=== PATIENT | male | born 1980 | race Caucasian/White ===

== ENCOUNTER 2019-02-04 15:09 | Emergency (ER) | payer OTHER, SELFPAY ==
[2019-02-04 15:11] VITALS: BP 135/92; PULSE 83; RESP 16; TEMP 37; O2SAT 98; BMI 30.4
--- NOTE | 2019-02-04 15:27 | ED.VIS.GEN ---
History of Present Illness Chief Complaint: Back Informant: Patient Onset: Today Narrative: Patient presents to the ED with low back pain after injury several hours ago. He was on the back of his pickup truck when he jumped off and landed unsteadily and felt instant sharp shooting pain in his lumbar region that radiated down his legs. He now states that his pain is localized to his lumbar region. He did try to take 600 mg of ibuprofen several hours ago without relief of his symptoms. This has happened to him in the past. He denies any paresthesias or bowel/bladder incontinence. Past Medical History - Allergies and Home Meds Allergies/Adverse Reactions: Allergies metoclopramide HCl [From Reglan] Allergy (Verified 02/04/19 15:13) Other Primary Care Physician: Lourdes Nolen MD [Primary Care Provider] - Smoking Status: Never smoker Review of Systems General: Denies: Chills, Fever, Sweats Eyes: Denies: Visual changes - bilaterally, Diplopia ENT: Denies: Rhinorrhea, Sore throat Cardiovascular: Denies: Chest pain, Palpitations Respiratory: Denies: Dyspnea, Cough, Dyspnea on exertion Gastrointestinal: Denies: Abdominal pain, Nausea, Vomiting, Diarrhea, Melena, Hematochezia Genitourinary: Denies: Dysuria, Hematuria, Frequency Musculoskeletal: Reports: Back pain. Denies: Extremity Pain Skin: Denies: Rash, Wounds Neurological: Denies: Headache, Weakness, Numbness Physical Exam Vital Signs/Narrative: Vital Signs Temp Pulse Resp BP Pulse Ox 02/04/19 15:11 98.6 F 83 16 135/92 H 98 General: Well nourished, Well developed, No Acute Distress Head: Normocephalic, Atraumatic Eyes: Perrl, EOMI ENT: Moist mucous membranes, No rhinorrhea Neck: Supple, Nontender Cardiovascular: Regular rate, Regular rhythm, No murmurs Respiratory: No distress, CTA bilaterally, Chest nontender Abdomen: Soft, Nontender, Nondistended, Normal bowel sounds Back: - - Tenderness to palpation over lumbar region midline and bilateral paraspinal muscles. No palpable step-offs. Negative straight leg raise bilaterally. Extremities: Nontender, No edema Skin: Normal color, No rash Neurological: Alert, Oriented x3, Cranial nerves II-XII grossly intact, Normal Strength, Normal Sensation Psychological: Normal affect, Normal Mood Diagnostic/Tx/Re-eval - Medical Decision Making Patient presents to the ED with lumbar pain after injury today. He was given a total of 8 mg of morphine, and 30 mg of Toradol IV in addition to 5 mg of Valium p.o. He does report improvement of symptoms and was able to ambulate in the emergency department. At this time his injury is most consistent with a lumbar strain. He will be discharged home with Naprosyn and Valium as well as [place] for breakthrough pain. He was instructed to follow-up with his PCP. Educated on signs/symptoms to return to the ED. He is provided discharge instructions. He is agreeable to plan Impression: Lumbar strain Disposition: Home stable ED Disposition - Plan for ED Patient: Disposition: Home or Assisted Living Diagnosis: Lumbar strain Instructions: Back Sprain/Strain Prescriptions: Naproxen [Naprosyn] 500 mg PO BID PRN #20 tab Prescription Printed Hydrocodone Bitart/Apap 5-325 [[place] 5MG-325MG] 1 tab PO Q6H PRN PRN 3 Days #10 tab PRN Reason: Pain Prescription Printed Diazepam [Valium] 5 mg PO Q8H PRN PRN 3 Days #9 tab PRN Reason: Muscle Spasm Prescription Printed Referrals: Lourdes Nolen MD [Primary Care Provider] -
[2019-02-04] MEDS: Morphine 4 MG/ML Syringe IV ×2 (15:42→16:25)
[2019-02-04] MEDS: diazePAM 5 MG Tablet PO (15:42)
[2019-02-04] MEDS: Ketorolac 30 MG/ML Syringe IV (17:11)
[2019-02-04 18:24] VITALS: BP 134/89; PULSE 79; RESP 16; O2SAT 99
== END 2019-02-04 18:34 | disposition home or self-care (01) ==
PROVIDERS: Emergency Provider Physician Assistant; Family Provider Internal Medicine; PCP Internal Medicine
DX: S39.012A Strain of muscle, fascia and tendon of lower back, initial encounter (principal); M62.830 Muscle spasm of back; W17.89XA Other fall from one level to another, initial encounter; Y93.9 Activity, unspecified; Y92.9 Unspecified place or not applicable; Y99.9 Unspecified external cause status; Z88.8 Allergy status to other drugs, medicaments and biological substances
CPT/HCPCS: 96374; 96375; 96376; 99283; A4216

== ENCOUNTER 2022-09-13 21:46 | Emergency (ER) | payer OTHER, SELFPAY ==
[2022-09-13 21:46] VITALS: BP 145/93; PULSE 93; RESP 18; TEMP 36.3; BMI 29.9
--- NOTE | 2022-09-13 22:28 | RAD_ITS ---
INDICATION: pain EXAMINATION/TECHNIQUE: X-RAY - XR Spine Lumbar Min 4 Views COMPARISON: None. FINDINGS: VERTEBRAE: Preserved vertebral body height. No fracture. No spondylolisthesis. Preservation of the normal lumbar lordosis. No significant facet arthropathy. DISCS: Disc spaces are maintained. INCLUDED ABDOMEN: Included bowel gas pattern is non-obstructive. RAD/L/S Spine Min 4 Views IMPRESSION: No evidence of lumbar spinal fracture or spondylolisthesis. Electronically Signed: Gunnar Noonan MD at 23:43 EDT ,
[2022-09-13] MEDS: Orphenadrine 60 MG/2 ML Ampul IM (22:51)
[2022-09-13] MEDS: dexAMETHasone 20 MG/5 ML Vial IV (23:03)
--- NOTE | 2022-09-14 00:02 | EX.ED.DYSGE1 ---
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 He states he was squatting and he accidentally arched his back as he was trying to stand up with the weight. He states when he did this he developed bilateral low back pain. He states he has difficulty standing and walking secondary to the pain. He denies any loss of bowel or bladder control or IV drug use. However with concern he would be ineffective at providing care in a fire or by EMS crew he comes in for evaluation. [facility] Medical History (Updated 09/14/22 @ 00:[address] 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 Fatigue Hernia History of hemorrhoids Knee pain Shoulder pain Home Medications prednisone 10 mg tablet 10 mg PO DAILY #30 tabs 11/19/20 [Rx Last Taken Unknown] ibuprofen 600 mg tablet 600 mg PO 4X/DAY PRN PRN pain #40 tabs 09/14/22 [Rx Last Taken Unknown] methocarbamol 500 mg tablet 1,000 mg PO 4X/DAY PRN PRN Muscle pain/spasm 7 days #56 tabs 09/14/22 [Rx Last Taken Unknown] Allergy/AdvReac Type Severity Reaction Status Date / Time metoclopramide HCl Allergy Other Verified 07/27/20 13:08 [From [facility]] Surgical History History of knee surgery Hx of [facility] Social History (Updated 08/11/20 @ 09:28 by Clay COOK, PA) Smoking Status: Never smoker alcohol intake: current ROS ROS ED Constitutional Constitutional ED: Denies chills or fever(s) ENT ENT ED: Denies sore throat Cardiovascular Cardiovascular: Denies chest pain Respiratory/Chest Respiratory/Chest: Denies cough or dyspnea Gastrointestinal Gastrointestinal: Denies abdominal pain, diarrhea, nausea or vomiting Genitourinary Genitourinary ED: Denies dysuria or hematuria Musculoskeletal Musculoskeletal: Reports back pain Integumentary Denies rash Neurologic Neurologic: Denies headache(s), paresthesias or weakness Hematologic/Lymphatic Hematologic/Lymphatic: Denies easy bleeding or easy bruising EXAM Physical Exam Const Vital Signs: 09/13/22 21:46 Temperature 97.3 F L Temperature Source Temporal Pulse Rate 93 Respiratory Rate 18 Blood Pressure 145/93 H Blood Pressure Mean 110 Positive well nourished and well developed General Appearance ED: well developed Eyes PERRL and EOMs intact bilaterally Neck supple Resp normal respiratory effort and clear to auscultation bilaterally Cardio regular rate and regular rhythm Back/Spine Back/Spine Narrative: No bony deformity or step-off of the thoracic or lumbar spine no midline pain with palpation. There is bilateral paralumbar tenderness and spasm noted that worsens with extension and rotation. No pain with palpation over top the sacroiliac joint region. No saddle anesthesia. Negative straight leg raise. No clonus or Babinski. Patellar reflexes are plus 2 out of 4 bilaterally. Extremity normal to inspection Neuro oriented x3 and CN's II-XII intact bilaterally Sensorium / Orientation: alert Psych mental status grossly normal Skin no rashes or lesions noted Skin Narrative: No overlying soft tissue changes to suggest trauma or infection MDM MDM MDM Narrative Medical decision making narrative: Patient presented to the ER with bilateral low back pain worse with motion after a squatting event. He denied loss of bowel or bladder control or IV drug use and therefore my concern for cauda equina or epidural abscess is low. Patient does not have true midline pain but with the history of compression loading from the squatting event there is concern for compression fracture or spinal thesis so an x-ray was ordered. X-ray revealed no acute bony findings. This indicates patient's symptoms are related to muscle and not bone and he has no radicular pain to suggest nervous compression. Therefore at this time patient to be given anti-inflammatories and muscle relaxers and discharged home History & Record Review Discussion w/independent historian: Patient Radiography Diagnostic Testing: Clinical Impression(s) from Imaging Studies Lumbar Spine X-Ray 09/13/22 22:28 IMPRESSION: No evidence of lumbar spinal fracture or spondylolisthesis. Electronically Signed: Gunnar Noonan MD at 23:43 EDT , X-ray of the lumbar spine as interpreted by the emergency medicine physician reveals no acute compression fracture or spondylolisthesis. Discharge Plan Triage Chief Complaint: Back ED Provider: Que Lundy Dx/Rx/DC Orders Clinical Impression: Acute lumbosacral myofascial strain Instructions: Understanding Lumbosacral Strain Prescriptions: New methocarbamol 500 mg tablet 1,000 mg PO 4X/DAY PRN PRN (Reason: Muscle pain/spasm) 7 Days Qty: 56 0RF Rx Instructions: 1 to 2 pills by mouth 4 times daily as needed muscle pain/spasm ibuprofen 600 mg tablet 600 mg PO 4X/DAY PRN PRN (Reason: pain) Qty: 40 0RF No Action prednisone 10 mg tablet 10 mg PO DAILY Qty: 30 0RF Rx Instructions: 4 tablets daily for 3 days, then 3 tablets daily for 3 days, then 2 tablets daily for 3 days, then 1 tablet daily for 3 days Primary Care Provider: Care Physician,No Primary Referrals: Care Physician,No Primary [Primary Care Provider] - Activity Restrictions/Additional Instructions: Please continue to stretch and heat your back to help reduce pain and speed healing and follow-up with Workmen's Comp. should you have worsening symptoms and return to the ER should you have any further concerns Happy birthday Disposition Disposition: Home, Self Care Discharge Date/Time: 09/14/22 00:22
== END 2022-09-14 00:22 | disposition home or self-care (01) ==
PROVIDERS: Emergency Provider Emergency Medicine; Visit Provider Emergency Medicine
DX: S39.012A Strain of muscle, fascia and tendon of lower back, initial encounter (principal); X50.0XXA Overexertion from strenuous movement or load, initial encounter; Y99.0 Civilian activity done for income or pay
CPT/HCPCS: 72110; 96372; 96374; 99282

== ENCOUNTER 2023-09-14 23:20 | Emergency (ER) | payer OTHER, SELFPAY ==
[2023-09-14 23:21] VITALS: BP 133/92; PULSE 88; RESP 14; TEMP 36.2; O2SAT 97; BMI 31.7
--- NOTE | 2023-09-14 23:39 | EDS_ITS ---
HPI History of Present Illness Chief Complaint: Lower Extremity Injury Narrative Narrative: 42-year-old male who denies significant past medical history presents with injury to his left foot that he sustained approximately 5 hours ago. There was a pop fly in a baseball game, that landed on his left foot. He has has bruising of his left toe and swelling around the MTP joint. He had mild bruising of his second toe as well. He has been able to ambulate. He took Aleve prior to arriv al. Pain is worse with weightbearing and walking. He denies other injury. No blood thinners. 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 Fatigue Hernia History of hemorrhoids Knee pain Shoulder pain Home Medications albuterol sulfate 90 mcg/actuation aerosol inhaler 2 puff inhalation Q6H PRN shortness of breath or wheezing #6.7 grams 10/11/22 [Rx Last Taken Unknown] cetirizine 10 mg capsule (Zyrtec) 10 mg PO DAILY PRN 10/11/22 [History Last Taken Unknown] fluticasone propionate 50 mcg/actuation nasal spray,suspension (Allergy Relief (fluticasone)) 1 spray intranasal DAILY PRN 10/11/22 [History Last Taken Unknown] guaifenesin 600 mg tablet, extended release 12 hr (Mucinex) 600 mg PO Q12H PRN 10/11/22 [History Last Taken Unknown] Allergy/AdvReac Type Severity Reaction Status Date / Time metoclopramide HCl Allergy Other Verified 09/14/23 23:24 [From [facility]] Surgical History History of knee surgery Hx of LASIK Social History Smoking Status: Never smoker alcohol intake: current ROS ROS ED ROS Narrative Constitutional: No fever, no chills. HEENT: No sore throat. No neck pain. No loss of vision. No rhinorrhea. Cardiovascular: No chest pain. No palpitations. No pedal edema. Respiratory: No cough, no shortness of breath. Abdominal: No abdominal pain. No nausea. No vomiting. Genitourinary: No dysuria. No hematuria. Musculoskeletal: No myalgias. Positive great toe pain and swelling. Positive bruising. Neurologic: No headaches. No dizziness. No lightheadedness. Skin: No rash. No change in color. Psychiatric: No depression. No anxiety. EXAM Physical Exam Narrative Exam Narrative: Afebrile. Vital signs noted. HEENT: Normocephalic. Atraumatic. PERRL, EOMI. Neck soft and supple. No point tenderness or step off. Cardiovascular: Regular rate and rhythm. No murmurs, rubs, or gallops appreciated. Respiratory: No tachypnea. Lungs clear to auscultation bilaterally. Gastrointestinal: Abdomen soft, nontender, with normoactive bowel sounds. No rebound or guarding. Neurological: Awake. Alert. Nonfocal, nonlateralizing. Skin: No rash. Normal color. No pallor. Musculoskeletal: No pedal edema. Full range of motion extremities. Limited range of motion of left great toe secondary to swelling and pain. Positive ecc hymosis diffusely especially at MTP joint and phalanx of great toe. Good capillary refill. Palpable dorsalis pedis pulse. Uninjured ankle and above. Const Vital Signs: 09/14/23 23:21 Temperature 97.2 F L Temperature Source Temporal Pulse Rate 88 Respiratory Rate 14 Blood Pressure 133/92 H Blood Pressure Mean 105 Pulse Ox 97 Oxygen Delivery Method Room Air MDM MDM MDM Narrative Medical decision making narrative: In the differential diagnosis is foot/toe contusion versus fracture. Patient declined any oral analgesics here. He has been icing the area already. X-rays were obtained in 3 views to rule out fracture. On my interpretation of his three-view foot x-ray, I see no evidence of acute fracture. I reviewed the radiology report which confirms my independent interpretation and comments on multiarticular chronic changes. At this point in time, patient declined postoperative shoe and Andi wrap. He will be weightbearing as tolerated. He was referred to podiatry to follow-up in 1 week if no improvement. [id number] medications are sufficient for analgesia. Disposition is discharged home in stable condition. Radiography Diagnostic Testing: Clinical Impression(s) from Imaging Studies Foot X-Ray 09/14/23 23:39 IMPRESSION: Multi-articular chronic changes. No convincing acute abnormality. Electronically Signed: Daisy Alford MD at 0:17 EDT , Discharge Plan Triage Chief Complaint: Lower Extremity Injury ED Provider: Cuco Burden Dx/Rx/DC Orders Clinical Impression: Contusion of foot, left Instructions: ED Foot Contusion Prescriptions: No Action fluticasone propionate [Allergy Relief (fluticasone)] 50 mcg/actuation spray,suspension 1 spray intranasal DAILY PRN Rx Instructions: administer into each nostril guaifenesin [Mucinex] 600 mg tablet extended release 12hr 600 mg PO Q12H PRN Zyrtec 10 mg capsule 10 mg PO DAILY PRN albuterol sulfate 90 mcg/actuation HFA aerosol inhaler 2 puff inhalation Q6H PRN (Reason: shortness of breath or wheezing) Qty: 6.7 0RF Primary Care Provider: Care Physician,No Primary Referrals: Hernán Juárez DPM [Med Staff - Active Staff] - 1 Week if not improving Care Physician,No Primary [Primary Care Provider] - Disposition Disposition: Home, Self Care
--- NOTE | 2023-09-14 23:39 | RAD_ITS ---
EXAM: XR LEFT FOOT COMPLETE, 3 OR MORE VIEWS CLINICAL INDICATION: Trauma TECHNIQUE: Frontal, lateral and oblique views of the left foot. COMPARISON: No relevant prior studies available. FINDINGS: BONES/JOINTS: Hallux valgus or bunion deformity of the first MTP joint. Fusion of the fourth and fifth DIP joints, normal variation. Mild degenerative osteophytes on the lateral side of the first DIP joint. No acute fracture. No sclerotic or destructive changes observed. SOFT TISSUES: Mild soft tissue swelling medial to the first MTP joint. No radiopaque foreign body. RAD/Foot min 3 Views IMPRESSION: Multi-articular chronic changes. No convincing acute abnormality. Electronically Signed: Daisy Alford MD at 0:17 EDT ,
== END 2023-09-15 00:34 | disposition home or self-care (01) ==
PROVIDERS: Emergency Provider Emergency Medicine; Visit Provider Emergency Medicine
DX: S90.32XA Contusion of left foot, initial encounter (principal); S90.122A Contusion of left lesser toe(s) without damage to nail, initial encounter; W21.03XA Struck by baseball, initial encounter; Z79.899 Other long term (current) drug therapy
CPT/HCPCS: 73630; 99282

== ENCOUNTER 2024-08-23 07:52 | Emergency (ER) | payer OTHER, SELFPAY ==
[2024-08-23 07:53] VITALS: BP 141/106; PULSE 75; RESP 18; TEMP 36.1; O2SAT 96; BMI 32.8
--- NOTE | 2024-08-23 08:04 | EDS_ITS ---
HPI History of Present Illness Chief Complaint: Back Informant: patient and spouse/S.O. Narrative Narrative: 43-year-old male presenting to the emergency room with acute back pain. 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 He felt tight yesterday. During the night he went to move and felt a twinge in his back and developed spasm. He has had episodes like this in the past. He notes when he stands up he feels better bent over with his knees bent. He notes the pain to be lateral across the low back radiating anteriorly and into the anterior thighs. He denies any bowel or bladder dysfunction. He denies any muscle weakness. He denies any known direct trauma. August 2022 he had back x-rays that were negative. No fever IVD immunosuppression or red flag history. 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 Contact dermatitis due to poison josé manuel Hernia Knee pain Fatigue Shoulder pain History of hemorrhoids Home Medications ?Medication ?Instructions ?Recorded ?Last Taken ?Type albuterol sulfate 90 mcg/actuation 2 puff inhalation Q 6H PRN 10/11/22 Unknown Rx aerosol inhaler shortness of breath or wheez ing #6.7 grams cetirizine 10 mg capsule (Zyrtec) 10 mg PO DAILY PRN 0 10/11/22 Unknown History fluticasone propionate 50 1 spray intranasal DAILY PRN 10/11/22 Unknown History mcg/actuation nasal spray,suspension (Allergy Relief (fluticasone)) guaifenesin 600 mg tablet, 600 mg PO Q12H PRN 10/11/22 Unknown History extended release 12 hr (Mucinex) diazepam 5 mg tablet 5 mg PO Q8 PRN Muscle Spasm #15 08/23/24 Unknown Rx tabs hydrocodone-acetaminophen 5-325mg 1 tab PO Q4H PRN PRN Pain 3 days 08/23/24 Unknown Rx 5mg-325mg #15 TABLETS ketorolac 10 mg tablet 10 mg PO Q8H PRN pain #15 ta bs 08/23/24 Unknown Rx Allergy/AdvReac Type Severity Reaction Status Date / Time metoclopramide HCl (From Allergy Other Verified 08/23/24 07:53 Reglan) Surgical History History of knee surgery Hx of LASIK Social History Smoking Status: Never smoker alcohol intake: current ROS ROS ED Constitutional Constitutional ED: Denies chills or weight loss Eyes Eyes: Denies change in vision or diplopia ENT ENT ED: Denies ear pain, rhinorrhea or sore throat Cardiovascular Cardiovascular: Denies chest pain, orthopnea, palpitations or racing heartbeat Respiratory/Chest Respiratory/Chest: Denies cough, dyspnea or orthopnea Gastrointestinal Gastrointestinal: Denies abdominal pain, diarrhea, nausea or vomiting Genitourinary Genitourinary ED: Denies dysuria, hematuria or urinary frequency Musculoskeletal Musculoskeletal: Reports back pain; Denies arthralgias or myalgias Integumentary Denies abscess or rash Neurologic Neurologic: Denies headache(s), paresthesias or weakness Psychiatric Psychiatric: Denies anxiety, depression, suicidal ideation or suicidal thoughts Endocrine Endocrinology: Denies polydipsia, polyphagia or polyuria Allergic/Immunologic Allergic/Immunologic ED: Denies mouth swelling, tongue swelling or urticaria EXAM Physical Exam Narrative Exam Narrative: Well-appearing 43-year-old male sitting in the bed knee slightly bent. Const Vital Signs: 08/23/24 07:53 Temperature 96.9 F L Temperature Source Temporal Pulse Rate 75 Respiratory Rate 18 Blood Pressure 141/106 H Blood Pressure Mean 117 Pulse Ox 96 Oxygen Delivery Method Room Air Positive well nourished and well developed General Appearance ED: well developed and NAD HEENT Reports normocephalic, head/scalp atraumatic and moist mucous membranes Eyes PERRL and EOMs intact bilaterally Neck no lymphadenopathy, supple and no JVD Resp normal respiratory effort and clear to auscultation bilaterally Cardio regular rate, regular rhythm and no murmurs GI normal to inspection, nondistended, normoactive bowel sounds and non-tender Palpation: soft Back/Spine no CVA tenderness Back/Spine Narrative: Patient has painful range of motion and sitting up. He has tenderness in the lumbar paraspinal musculature. No tissue texture changes to suggest underlying infection. Extremity normal to inspection General Extremety ED: Negative for edema General Extremity: Negative for edema Neuro oriented x3, CN's II-XII intact bilaterally and no sensory deficits noted Neuro Narrative: Normal sensation muscular strength. Strong dorsiflexion of the toes. Sensorium / Orientation: alert Motor Exam: strength 5/5 throughout Psych mental status grossly normal Mood & Affect: Negative for depressed or tearful Skin no rashes or lesions noted and no wounds MDM MDM MDM Narrative Medical decision making narrative: Differential diagnosis includes lumbar paraspinal muscular spasm psoas muscle spasm lumbar radiculopathy cauda equina disc herniation abscess hematoma nerve compression IV was established patient received Dilaudid Toradol and oral Valium. Patient states the pain is less sharp. I believe the patient to have muscular spasm probably of the psoas muscle. Would recommend pain and muscle relaxants at home as well as gentle stretching hydration and heat. We talked about the importance of regular stretching. History & Record Review Discussion w/independent historian: Patient and Significant other Discharge Plan Triage Chief Complaint: Back ED Provider: David Hilton Dx/Rx/DC Orders Clinical Impression: Acute low back pain, Spasm of back muscles Instructions: ED Back Spasm, No Trauma Prescriptions: New hydrocodone-acetaminophen 5-325 mg tablet 1 tab PO Q4H PRN PRN (Reason: Pain) 3 Days Qty: 15 0RF diazepam [diazepam] 5 mg tablet 5 mg PO Q8 PRN (Reason: Muscle Spasm) Qty: 15 0RF ketorolac 10 mg tablet 10 mg PO Q8H PRN (Reason: pain) Qty: 15 0RF Rx Instructions: maximum total duration of 5 days from all oral, intranasal, or parenteral formulations No Action fluticasone propionate [Allergy Relief (fluticasone)] 50 mcg/actuation spray,suspension 1 spray intranasal DAILY PRN Rx Instructions: administer into each nostril guaifenesin [Mucinex] 600 mg tablet extended release 12hr 600 mg PO Q12H PRN Zyrtec 10 mg capsule 10 mg PO DAILY PRN albuterol sulfate 90 mcg/actuation HFA aerosol inhaler 2 puff inhalation Q6H PRN (Reason: shortness of breath or wheezing) Qty: 6.7 0RF Primary Care Provider: Karlos Schuler Referrals: Karlos Schuler MD [Primary Care Provider] - As Needed Care Physician,No Primary [Non-Staff] - Activity Restrictions/Additional Instructions: As we discussed hydration heat gentle stretching massage will be helpful. The biggest component to this is time for the muscles to heal and relax and then maintenance of stretching regularly. Print Language: Hungarian Disposition Disposition: Home, Self Care
[2024-08-23] MEDS: diazePAM 5 MG Tablet PO (08:08)
[2024-08-23] MEDS: Ketorolac 30 MG/ML Syringe IV (08:10)
[2024-08-23] MEDS: HYDROmorphone 1 MG/ML Syringe IV (08:10)
[2024-08-23 09:12] VITALS: BP 132/99; PULSE 71; RESP 18; TEMP 36.6; O2SAT 99
== END 2024-08-23 09:13 | disposition home or self-care (01) ==
PROVIDERS: Emergency Provider Emergency Medicine; PCP Family Medicine; Visit Provider Emergency Medicine
DX: M54.50 Low back pain, unspecified (principal); M62.830 Muscle spasm of back
CPT/HCPCS: 96374; 96375; 99283; A4216

== ENCOUNTER → 2024-09-17 | Outpatient (CLI) | payer OTHER, SELFPAY ==
[2024-09-17 12:21] LABS: Hemoglobin 14.2 g/dL (13.0-16.5); Mean Corp Hgb Conc 35.5 g/dL (32-36); Mean Corpuscular Hgb 30.7 pg (27.0-32.0); Mean Corpuscular Volume 86.6 fL (80-94); Mean Platelet Vol. 10.5 fl (6.2-12.0); Platelet Count 215 K/mm3 (150-450); RBC Distribution Width CV 12.6 % (11.6-14.6); RBC Distribution Width SD 39.8 fl (35.1-43.9); Red Blood Count 4.62 M/mm3 (4.6-6.2); White Blood Count 4.5 K/mm3 (4.4-11.0)
[2024-09-17 12:52] LABS: Vitamin D,25 Hydroxy 32.6 ng/mL (30-100)
== END | disposition home or self-care (01) ==
LOC: MTLAB 10:54
PROVIDERS: PCP Family Medicine; Referring Provider Family Medicine; Visit Provider Family Medicine
DX: R53.83 Other fatigue (principal)
CPT/HCPCS: 36415; 82306; 84402; 84403; 84443; 85027

== ENCOUNTER → 2024-11-08 | Outpatient (CLI) | payer OTHER, SELFPAY ==
[2024-11-08 18:13] LABS: ALB/GLOB Ratio 1.6 RATIO (0.9-2.4); AST(SGOT) 27 U/L (<=37); Alanine Aminotransfer ALT/SGPT 33 U/L (<=46); Albumin, Serum 4.5 g/dL (3.5-5.0); Alkaline Phosphatase 53 U/L (40-129); Anion Gap 14 (5-15); BUN 13 mg/dL (4-19); BUN/Creat Ratio 11.9 RATIO (10-20); CORTISOL AM 8.19 ug/dL (6.02-18.40); Carbon Dioxide 21.4 mmol/L (21.0-32.0); Chloride 100 mmol/L (98-108); Creatinine, Serum 1.07 mg/dL (0.70-1.20); EST Glomerular Filtration Rate 88 (>60); Globulin 2.8 g/dL (2.2-4.2); Glucose 79 mg/dL (70-99); Potassium 4.4 mmol/L (3.3-5.1); Protein, Total 7.3 g/dL (5.9-8.4); Sodium Level 136 mmol/L (133-145); Total Bilirubin 0.38 mg/dL (0.00-1.30)
== END | disposition home or self-care (01) ==
LOC: MFPLAB 10:59
PROVIDERS: PCP Family Medicine; Referring Provider Family Medicine; Visit Provider Family Medicine
DX: R03.0 Elevated blood-pressure reading, without diagnosis of hypertension (principal); R53.83 Other fatigue
CPT/HCPCS: 36415; 80053; 82533